=== PATIENT | male | born 1995 | race Caucasian/White ===

== ENCOUNTER → 2016-11-28 | Outpatient (CLI) | payer OTHER ==
[2016-11-28 09:16] LABS: ABSOLUTE EOSINOPHILS # (AUTO) 0.2 10^3/uL (0.0-0.6); ABSOLUTE LYMPHOCYTES (AUTO) 2.4 10^3/uL (0.5-4.7); ABSOLUTE MONOCYTES (AUTO) 0.5 10^3/uL (0.1-1.4); ABSOLUTE NEUT (AUTO) 3.8 10^3/uL (1.7-8.2); BASOPHILS % (AUTO) 0.4 % (0-2); EOSINOPHILS % (AUTO) 3.2 % (0-6); HEMATOCRIT 44.3 % (37.9-51.0); HGB HCT DIFFERENCE 0.7; LYMPHOCYTES % (AUTO) 34.4 % (13-45); MEAN CORPUSCULAR HEMOGLOBIN 29.1 pg (27.0-33.4); MEAN CORPUSCULAR HGB CONC 33.9 g/dL (32.0-36.0); MEAN CORPUSCULAR VOLUME 86 fl (80-97); MONOCYTES % (AUTO) 7.6 % (3-13); RED BLOOD COUNT 5.16 10^6/uL (4.35-5.55); SEGMENTED NEUTROPHILS % (AUTO) 54.4 % (42-78)
[2016-11-28 09:27] LABS: ALANINE AMINOTRANSFERASE 23 U/L (21-72); ALBUMIN 4.4 g/dL (3.5-5.0); ALKALINE PHOSPHATASE 81 U/L (38-126); ANION GAP 11 (5-19); ASPARTATE AMINO TRANSFERASE 16 U/L (17-59); BILIRUBIN,DIRECT 0.3 mg/dL (0.0-0.4); BILIRUBIN,TOTAL 0.4 mg/dL (0.2-1.3); BLOOD UREA NITROGEN 20 mg/dL (7-20); CALCIUM 9.9 mg/dL (8.4-10.2); CARBON DIOXIDE 26 mmol/L (22-30); CHLORIDE 110 mmol/L (98-107); CHOLESTEROL 207.56 mg/dL (0-200); CREATININE RESULT 0.89 mg/dL (0.52-1.25); Direct HDL 44 mg/dL (>40); GLUCOSE 93 mg/dL (75-110); POTASSIUM 4.8 mmol/L (3.6-5.0); SODIUM 147.3 mmol/L (137-145); TOTAL PROTEIN 7.5 g/dL (6.3-8.2); TRIGLYCERIDES 157 mg/dL (<150)
[2016-11-28 09:38] LABS: DIRECT LDL 134 mg/dL (<100)
[2016-11-28 09:43] LABS: VLDL CHOLESTEROL 31.4 mg/dL (10-31)
== END ==
LOC: CCC 07:52
DX: Z00.00 Encounter for general adult medical examination without abnormal findings (principal); I10 Essential (primary) hypertension
CPT/HCPCS: 36415; 80053; 80061; 83036; 84443; 85025

== ENCOUNTER → 2017-11-14 | Outpatient (CLI) | payer OTHER ==
[2017-11-14 09:29] LABS: ALANINE AMINOTRANSFERASE 43 U/L (21-72); ALBUMIN 4.7 g/dL (3.5-5.0); ALKALINE PHOSPHATASE 68 U/L (38-126); ANION GAP 14 (5-19); ASPARTATE AMINO TRANSFERASE 23 U/L (17-59); BILIRUBIN,DIRECT 0.3 mg/dL (0.0-0.4); BILIRUBIN,TOTAL 0.4 mg/dL (0.2-1.3); BLOOD UREA NITROGEN 15 mg/dL (7-20); CALCIUM 9.9 mg/dL (8.4-10.2); CARBON DIOXIDE 29 mmol/L (22-30); CHLORIDE 103 mmol/L (98-107); CHOLESTEROL 206.27 mg/dL (0-200); GLUCOSE 87 mg/dL (75-110); POTASSIUM 4.5 mmol/L (3.6-5.0); SODIUM 145.9 mmol/L (137-145); TOTAL PROTEIN 7.6 g/dL (6.3-8.2); TRIGLYCERIDES 77 mg/dL (<150)
[2017-11-14 09:40] LABS: DIRECT LDL 139 mg/dL (<100)
== END ==
LOC: OD 07:38
DX: I10 Essential (primary) hypertension (principal); E78.00 Pure hypercholesterolemia, unspecified
CPT/HCPCS: 36415; 80053; 80061

== ENCOUNTER → 2018-10-01 | Outpatient (CLI) | payer OTHER ==
[2018-10-01 08:40] LABS: ALANINE AMINOTRANSFERASE 81 U/L (21-72); ALBUMIN 4.5 g/dL (3.5-5.0); ALKALINE PHOSPHATASE 69 U/L (38-126); ANION GAP 10 (5-19); ASPARTATE AMINO TRANSFERASE 183 U/L (17-59); BILIRUBIN,DIRECT 0.3 mg/dL (0.0-0.4); BILIRUBIN,TOTAL 0.4 mg/dL (0.2-1.3); BLOOD UREA NITROGEN 14 mg/dL (7-20); CARBON DIOXIDE 29 mmol/L (22-30); CHLORIDE 103 mmol/L (98-107); CHOLESTEROL 187.28 mg/dL (0-200); GLUCOSE 97 mg/dL (75-110); POTASSIUM 4.5 mmol/L (3.6-5.0); SODIUM 141.8 mmol/L (137-145); TOTAL PROTEIN 7.9 g/dL (6.3-8.2); TRIGLYCERIDES 152 mg/dL (<150); URIC ACID 7.2 mg/dL (3.5-8.5)
[2018-10-01 08:57] LABS: DIRECT LDL 122 mg/dL (<100)
[2018-10-01 09:04] LABS: VLDL CHOLESTEROL 30.4 mg/dL (10-31)
== END ==
LOC: CCC 07:32
DX: I10 Essential (primary) hypertension (principal)
CPT/HCPCS: 36415; 80053; 80061; 83036; 84443; 84550

== ENCOUNTER 2018-11-23 08:10 | Emergency (ER) | payer SELFPAY ==
[2018-11-23 08:16] VITALS: BP 137/76
[2018-11-23] MEDS ORDERED: ACETAMINOPHEN 325 MG TABLET PO ONE (09:03)
[2018-11-23] MEDS ORDERED: IBUPROFEN 600 MG TABLET PO ONE (09:03)
--- NOTE | 2018-11-23 09:05 | ER Document Report ---
HPI - HPI Time Seen by Provider: 11/23/18 08:57 Pain Level: 4 Context: Patient is a 23-year-old male who presents to the emergency department with left-sided jaw pain. He states that he has had this problem for the past 2 to 3 years. He has always had clicking in his left jaw. Yesterday he was eating a snack and felt pain on the left side. He states that he has seen the dentist and his primary care provider in regards to this issue and was told that he had weak muscles in his jaw. He 500 mg of acetaminophen and yesterday evening and stated it felt better. He has not taken any occasions since then. He has a past medical history of hypertension and is currently on lisinopril. - CONSTITUTIONAL Constitutional: DENIES: Fever, Chills - EENT EENT: DENIES: Sore Throat, Ear Pain, Congestion, Eye problems Notes: Jaw clicking and left-sided jaw pain - CARDIOVASCULAR Cardiovascular: DENIES: Chest pain - RESPIRATORY Respiratory: DENIES: Trouble Breathing, Coughing - GASTROINTESTINAL Gastrointestinal: DENIES: Abdominal Pain - MUSCULOSKELETAL Musculoskeletal: DENIES: Extremity pain, Back Pain, Neck Pain, Swelling - DERM Skin Color: Normal Skin Problems: None Past Medical History - General Information source: Patient - Social History Smoking Status: Never Smoker Chew tobacco use (# tins/day): No Frequency of alcohol use: None Drug Abuse: None Family History: Reviewed & Not Pertinent Patient has suicidal ideation: No Patient has homicidal ideation: No Renal/ Medical History: Denies: Hx Peritoneal Dialysis Past Surgical History: Reports: Hx Tonsillectomy Vertical Provider Document - CONSTITUTIONAL Agree With Documented VS: Yes Exam Limitations: No Limitations General Appearance: No Apparent Distress - INFECTION CONTROL TRAVEL OUTSIDE OF THE [place] IN LAST 30 DAYS: No - HEENT HEENT: Atraumatic, Normal ENT Exam, Normocephalic, PERRLA Notes: Jaw clicking noted and joint popping out of place, but retracts back in. - NECK Neck: Normal Inspection - RESPIRATORY Respiratory: Breath Sounds Normal, No Respiratory Distress - CARDIOVASCULAR Cardiovascular: Regular Rate, Regular Rhythm, No Murmur Pulses: Normal: Radial - MUSCULOSKELETAL/EXTREMETIES Musculoskeletal/Extremeties: FROM, Tender - Left-sided jaw - NEURO Level of Consciousness: Awake, Alert, Appropriate Motor/Sensory: No Motor Deficit, No Sensory Deficit - DERM Integumentary: Warm, Dry, No Rash Course - Re-evaluation Re-evalutation: 11/23/18 09:05 Patient's physical exam and history is consistent with TMJ. He will be given a dose of acetaminophen and ibuprofen here in the emergency department. I have instructed him to continue to use these medications to help with his symptoms. I told him that if his symptoms persist, he can follow-up with his primary care provider in regards to this issue. I do not suspect a jaw dislocation, or any life-threatening etiology at this time. Airway is patent. Verbal discharge instructions were given to the patient. They verbalized understanding. They are stable for discharge. \ - Vital Signs Vital signs: Temp Pulse Resp BP Pulse Ox 98.2 F 67 20 137/76 H 98 11/23/18 08:15 11/23/18 08:15 11/23/18 08:15 11/23/18 08:15 11/23/18 08:15 Discharge - Discharge Clinical Impression: Jaw pain Condition: Stable Disposition: HOME, SELF-CARE Additional Instructions: You were seen today in the emergency department for left jaw pain. Your jaw pain can be managed with acetaminophen 1000 mg and ibuprofen 600 mg every 6 hours as needed. If your symptoms persist, please follow-up with your primary care provider. If you are unable to move your jaw, or worsening symptoms, please return to the emergency department. Referrals: [facility] [NO LOCAL MD] - Follow up as needed
== END 2018-11-23 09:19 | disposition home or self-care (01) ==
LOC: ER 08:10
DX: R68.84 Jaw pain (principal); I10 Essential (primary) hypertension; Z79.899 Other long term (current) drug therapy
CPT/HCPCS: 99283

== ENCOUNTER → 2019-03-09 | Outpatient (CLI) | payer OTHER ==
[2019-03-09 13:18] LABS: ALBUMIN 4.7 g/dL (3.5-5.0); ALKALINE PHOSPHATASE 71 U/L (38-126); ANION GAP 12 (5-19); ASPARTATE AMINO TRANSFERASE 30 U/L (17-59); BILIRUBIN,DIRECT 0.3 mg/dL (0.0-0.4); BILIRUBIN,TOTAL 0.4 mg/dL (0.2-1.3); BLOOD UREA NITROGEN 15 mg/dL (7-20); CALCIUM 9.6 mg/dL (8.4-10.2); CARBON DIOXIDE 27 mmol/L (22-30); CHLORIDE 102 mmol/L (98-107); GLUCOSE 96 mg/dL (75-110); POTASSIUM 4.7 mmol/L (3.6-5.0); TOTAL PROTEIN 7.9 g/dL (6.3-8.2)
[2019-03-10 11:37] LABS: HEPATITS B SURFACE ANTIGEN Negative (Negative)
[2019-03-10 13:21] LABS: HEPATITIS C VIRUS ANTIBODY <0.1 s/co ratio (0.0-0.9)
== END ==
LOC: CCC 11:52
DX: I10 Essential (primary) hypertension (principal); R94.5 Abnormal results of liver function studies
CPT/HCPCS: 36415; 80048; 80074; 80076